=== PATIENT | female | born 1990 | race Caucasian/White ===

== ENCOUNTER 2019-04-14 22:46 | Day surgery (SDC) | payer SELFPAY ==
[2019-04-14] VITALS (7 sets, daily range): BP systolic 104–132; BP diastolic 55–87
[~2019-04-14] VITALS: Ht 162.6 cm; Wt 52.1 kg
[2019-04-14 16:18] LABS: BASO # 0.1 10^3/uL (0.0-0.2); BASO % 0.7 % (0.0-1.0); EOS # 0.1 10^3/uL (0.0-0.50); EOS % 1.8 % (0.0-3.0); HEMATOCRIT 39.7 % (36.0-47.0); HEMOGLOBIN 13.5 g/dl (12.0-15.5); LYMPH # 2.2 10^3/uL (1.5-4.5); LYMPH % 29.8 % (24.0-44.0); MEAN CORPUSCULAR VOLUME 85.2 fl (80.0-96.0); MONO # 0.4 10^3/uL (0.0-0.8); MONO % 5.9 % (0.0-5.0); NEUTROPHILS # 4.5 10^3/uL (1.8-7.7); NEUTROPHILS % 61.5 % (36.0-66.0); PLATELET COUNT, AUTOMATED 298 10^3/uL (150-450); RED BLOOD COUNT 4.66 10^6/uL (4.00-5.40); WHITE BLOOD COUNT 7.3 10^3/uL (4.0-10.0)
[2019-04-14 16:31] LABS: ALBUMIN 3.9 GM/DL (3.2-5.2); ALT/SGPT 18 U/L (12-78); BILIRUBIN,TOTAL 0.5 MG/DL (0.2-1.0); BLOOD UREA NITROGEN 12 MG/DL (7-18); CALCIUM LEVEL 8.8 MG/DL (8.5-10.1); CARBON DIOXIDE LEVEL 26 MEQ/L (21-32); CHLORIDE LEVEL 106 MEQ/L (98-107); GLOMERULAR FILTRATION RATE > 60.0 (>60); GLUCOSE, FASTING 87 MG/DL (70-100); POTASSIUM SERUM 3.8 MEQ/L (3.5-5.1); SODIUM LEVEL 140 MEQ/L (136-145); TOTAL PROTEIN 7.7 GM/DL (6.4-8.2)
--- NOTE | 2019-04-14 21:19 | HPE ---
DATE OF ADMISSION: 04/14/2019 HISTORY: A 28-year-old G7, P5-1-0-5 female at approximately 11 weeks gestation by last menstrual period (LMP) of 01/23/2019 presents with one day of vaginal bleeding like a period. She has had cramping for the last 2-3 days. She also claims to have felt feverish for the last 2-3 days as well. I did not measure her temperature. Denies nausea or vomiting. She has had no care for this early . She presents to triage at [facility]. OBSTETRICAL HISTORY: 1. 2009: Spontaneous vaginal delivery 5 pound 12 ounce . 2. 2010: 23 week vaginal delivery resulting in a . 3. 2011: Spontaneous vaginal delivery 6 pound 12 ounce . 4. 2012: Spontaneous vaginal delivery 6 pound 11 ounce . 5. 2015: Spontaneous vaginal delivery term infant. 6. 2017: Spontaneous vaginal delivery term infant. MEDICAL HISTORY: Gluten intolerance. SURGICAL HISTORY: 1. Diaphragmatic hernia repair 2011. 2. Repair of paraesophageal hernia 2013. ALLERGIES: None. SOCIAL HISTORY: The patient is [employer]. She lives with her and family. She denies cigarettes, alcohol or drug use. FAMILY HISTORY: Noncontributory. PHYSICAL EXAMINATION: Blood pressure 132/87, pulse 114, temperature at 100.8 Fahrenheit, respiratory rate 18. She is a pale, thin-appearing female NECK EXAM: Normal. LUNGS: Clear. HEART: Regular rate and rhythm. ABDOMEN: Nontender, soft. Uterus mildly enlarged. Approximately 10 week size. STERILE VAGINAL EXAM: Cervix is closed with moderate amount of vaginal bleeding. EXTREMITIES: Are nontender. Ultrasound reveals a 7 week intrauterine gestation with no heartbeat present. There are cystic present in the placenta, concerning for possible molar . ASSESSMENT: A 28-year-old G7, P5-1-0-5 female with 7-8 week gestation, possible molar with fevers consistent with possible infection or septic . PLAN: Plan is to admit for antibiotics and will also prepare for a suction dilation and curettage (D and C) procedure. Will obtain baseline laboratories as well as type and screen.
[~2019-04-14 22:46] MED LIST: ACETAMINOPHEN 500 MG TAB PO PRN; ANUS2.5C2 TOP; COLA100C5 PO; COLA50CA3 PO; IBUP600T26 PO; IBUP80TA PO; KETOROLAC 60 MG/2 ML VIAL (J1885) As Ordered ONE; LACTATED RINGER'S 1000 ML IV STA; LIDOCAINE 1% SDV INJ 30 ML VIAL As Ordered ONE; LIDOCAINE 2% INJ 100 MG/5 ML SDV (FOR ANES.) As Ordered ONE; LR 1,000 ML IV SCH; MAPA500T17 PO; MIDAZOLAM INJ 2 MG/2 ML VIAL (J2250) As Ordered ONE; MILK10SU PO; MYLI40DR PO; NORCO, ANEXSIA 5/325MG TABLET (HYDROcodone/ACETAMINOPHEN) PO PRN; ONDANSETRON 4MG/2ML VIAL (J2405) As Ordered ONE; ONDANSETRON 4MG/2ML VIAL (J2405) IV PRN; OXY IR PO; PIPERACILLIN/TAZOBACTAM SOD 3.375 GM in D5W MINI-BAG PLUS 50 ML IV SCH; PRENTAB9 PO; PROPOFOL 200 MG/20 ML VIAL As Ordered ONE; TYLE325T5 PO; dexameTHASONE 4 MG/ML 1ML VIAL (J1100) As Ordered ONE; fentaNYL 100 MCG/2 ML INJECTION (J3010) As Ordered ONE; fentaNYL 100 MCG/2 ML INJECTION (J3010) IV PRN
[2019-04-15 00:25] VITALS: BP 111/65
[2019-04-15] MEDS: PIPERACILLIN/TAZOBACTAM SOD 3.375 GM in D5W MINI-BAG PLUS 50 ML IV SCH ×2 (00:34→07:00)
[2019-04-15 01:25] VITALS: BP 112/77
[2019-04-15 02:25] VITALS: BP 108/62
[2019-04-15 03:25] VITALS: BP 109/66
--- NOTE | 2019-04-15 06:16 | RO ---
DATE OF PROCEDURE: 04/14/2019 PREOPERATIVE DIAGNOSIS: Embryonic demise 7-8 weeks gestation, possible septic, . POSTOPERATIVE DIAGNOSIS: Embryonic demise 7-8 weeks gestation, possible septic, . PROCEDURE: Dilation, evacuation and curettage. SURGEON: Silvestre Barron MD TAPE CUTTING MACHINE OPERATOR: ANESTHESIA: Local with sedation. ESTIMATED BLOOD LOSS: 50 mL. URINE OUTPUT: 20 mL. FINDINGS: Moderate amount of products of conception. OPERATIVE SUMMARY: Patient taken to the operating room where IV sedation was given. She was prepped and draped in sterile fashion in the dorsal lithotomy position. The bladder was emptied with a catheter. Speculum was placed in the vagina. The anterior lip of the cervix was grasped with a tenaculum. The cervix was injected circumferentially with 20 mL of 1% lidocaine. The cervix was dilated with tapered dilators. #9 mm suction curet was inserted through the internal os. Suction device activated and curet was gently rotated. All products of conception were noted coming through the suction tubing. Sharp curettage was performed. Uterine cavity was deemed to be empty. All instruments removed. Sponge and instrument counts were correct.
[2019-04-15 08:00] VITALS: BP 115/73
[2019-04-15] MEDS ORDERED: IBUPROFEN 800 MG TAB PO ONE (08:15)
== END 2019-04-15 09:15 | disposition home or self-care (01) ==
LOC: M SDC 22:46 → M LDO 22:46 → M PED 22:46 → M SDC 04-15 09:15
PROVIDERS: ATTEND Specialist
DX: O02.1 Missed abortion (principal)
CPT/HCPCS: 59820; 80053; 85025; 86850; 86900; 86901; 87040; 88305; 96365; 96366; 96376; J1885; J2250; J2543; J3010

== ENCOUNTER 2019-04-19 14:46 | Emergency (ER) | payer SELFPAY ==
[~2019-04-19] VITALS: Ht 157.5 cm; Wt 52.0 kg
[~2019-04-19 14:46] MED LIST changes: -ACETAMINOPHEN 500 MG TAB PO PRN; -KETOROLAC 60 MG/2 ML VIAL (J1885) As Ordered ONE; -LACTATED RINGER'S 1000 ML IV STA; -LIDOCAINE 1% SDV INJ 30 ML VIAL As Ordered ONE; -LIDOCAINE 2% INJ 100 MG/5 ML SDV (FOR ANES.) As Ordered ONE; -LR 1,000 ML IV SCH; -MIDAZOLAM INJ 2 MG/2 ML VIAL (J2250) As Ordered ONE; -NORCO, ANEXSIA 5/325MG TABLET (HYDROcodone/ACETAMINOPHEN) PO PRN; -ONDANSETRON 4MG/2ML VIAL (J2405) As Ordered ONE; -ONDANSETRON 4MG/2ML VIAL (J2405) IV PRN; -PIPERACILLIN/TAZOBACTAM SOD 3.375 GM in D5W MINI-BAG PLUS 50 ML IV SCH; -PROPOFOL 200 MG/20 ML VIAL As Ordered ONE; -dexameTHASONE 4 MG/ML 1ML VIAL (J1100) As Ordered ONE; -fentaNYL 100 MCG/2 ML INJECTION (J3010) As Ordered ONE; -fentaNYL 100 MCG/2 ML INJECTION (J3010) IV PRN
[2019-04-19] MEDS ORDERED: NS 1,000 ML IV ONE ×2 (15:30→16:00)
[2019-04-19 15:47] LABS: BASO % 0.5 % (0.0-1.0); EOS # 0.1 10^3/uL (0.0-0.50); EOS % 1.4 % (0.0-3.0); HEMATOCRIT 35.5 % (36.0-47.0); LYMPH # 1.4 10^3/uL (1.5-4.5); LYMPH % 32.6 % (24.0-44.0); MEAN CORPUSCULAR HEMOGLOBIN 29.8 pg (27.0-33.0); MEAN CORPUSCULAR HGB CONC 33.8 g/dl (32.0-36.5); MEAN CORPUSCULAR VOLUME 88.1 fl (80.0-96.0); MONO # 0.3 10^3/uL (0.0-0.8); MONO % 7.1 % (0.0-5.0); NEUTROPHILS # 2.5 10^3/uL (1.8-7.7); NEUTROPHILS % 58.2 % (36.0-66.0); PLATELET COUNT, AUTOMATED 229 10^3/uL (150-450); RED BLOOD COUNT 4.03 10^6/uL (4.00-5.40); WHITE BLOOD COUNT 4.4 10^3/uL (4.0-10.0)
[2019-04-19 16:14] LABS: BLOOD UREA NITROGEN 9 MG/DL (7-18); CARBON DIOXIDE LEVEL 24 MEQ/L (21-32); CHLORIDE LEVEL 112 MEQ/L (98-107); CREATININE FOR GFR 0.63 MG/DL (0.55-1.30); GLOMERULAR FILTRATION RATE > 60.0 (>60); GLUCOSE, FASTING 94 MG/DL (70-100); POTASSIUM SERUM 3.7 MEQ/L (3.5-5.1); SODIUM LEVEL 143 MEQ/L (136-145)
[2019-04-19 18:10] VITALS: BP 118/82
--- NOTE | 2019-04-19 20:50 | ECGEPIP ---
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
== END 2019-04-19 18:13 | disposition home or self-care (01) ==
LOC: EDBD 14:46 → M ED 14:46
DX: R55 Syncope and collapse (principal); R42 Dizziness and giddiness; Z98.890 Other specified postprocedural states; R00.0 Tachycardia, unspecified; R11.0 Nausea

== ENCOUNTER → 2019-08-06 | Outpatient (CLI) | payer SELFPAY ==
[~2019-08-06] MED LIST changes: +E-Z-GAS II EFFERVESCENT PACKET (SODIUM BICARB./CITRIC ACID/SIMETHICONE) As Ordered ONE; +E-Z-HD 98% w/w 340GM SUSP BTL As Ordered ONE; +E-Z-PAQUE 96% w/w SUSP 176GM BTL As Ordered ONE
--- NOTE | 2019-08-06 15:27 | REP ---
Upper GI Air Contrast with SBFT The procedure was performed by SOFIA Becerra, under the the direct supervision of Dr. Herman. The images were reviewed with Dr. Herman. The product blending supervisor film shows no organomegaly or pathological masses. The intestinal gas pattern appears normal. Liquid barium and gas producing crystals were given in the erect position as well as liquid barium in the prone position in order to perform a double contrast upper GI examination. The oral and pharyngeal stages of deglutition were unremarkable. Esophageal transport is efficient and there is no esophagitis, stricture, or mucosal ring noted. There is a large hiatal hernia. Gastroesophageal reflux was visualized past the level of the neena. The stomach souza are normally outlined. The rugal folds are smooth and regular. There is no gastritis, neoplasm, or ulcer disease noted. The duodenal souza are normally outlined. The mucosal folds are smooth and regular. There is no duodenitis, peptic ulcer disease, or neoplasm noted. The visualized portion of the proximal small bowel appears normal in course and caliber. The barium column was followed through the small bowel to the level of the terminal ileum. Small bowel transit time was approximately 50 minutes. During fluoroscopy gentle palpation shows all loops are freely mobile and pliable. There are no fixed or angulated loops. The small bowel mucosal pattern is normal in course and caliber. There is no transition to set suggest a partial small-bowel obstruction. Spot filming of the terminal ileum shows it to be unremarkable. Impression: 1. Large hiatal hernia. 2. Gastroesophageal reflux past the level of the neena. 0.9 minutes of fluoroscopy time was utilized for this procedure. Some fluoroscopic images are performed with last image hold technology. These images require no additional radiation. Reviewed by SOFIA Collazo 08/06/2019 02:03 P Electronically Signed by Arvind Herman MD 08/06/2019 03:18 P
== END ==
LOC: M RAD 08:50
PROVIDERS: ATTEND Surgery
DX: K31.84 Gastroparesis (principal); K44.9 Diaphragmatic hernia without obstruction or gangrene; K21.9 Gastro-esophageal reflux disease without esophagitis